=== PATIENT | male | born 1990 | race Caucasian/White ===

== ENCOUNTER 2018-07-11 14:36 | Emergency (ER) | payer MEDICAID ==
--- NOTE | 2018-07-11 15:10 | Emergency Department Record ---
History of Present Illness - General Chief Complaint: Chest Pain Stated Complaint: CHEST PAIN Time Seen by Provider: 07/11/18 15:09 Source: Patient Mode of Arrival: Ambulatory Limitations: No limitations - History of Present Illness Initial Comments: pt has been having intermittent bouts of cp all day. it gradually got worse until pt was grabbing his chest and had difficulty driving down the road. pain has eased now. pt smokes. fam hx unknown. MD Complaint: Chest pain Onset/Timin -: Hour(s) Onset: Awoke with symptoms Pain Location: Substernal Pain Radiation: LUE Severity: Moderate Severity scale (1-10): 4 Quality: Sharp, Other Consistency: Constant Improves With: Nothing Worsens With: Nothing Anginal Symptoms: Dyspnea Treatments Prior to Arrival: None - Related Data Previous Rx's Medication Instructions Recorded Ibuprofen [Motrin 600Mg] 600 mg PO Q6H #20 tablet 07/11/18 Allergies Allergy/AdvReac Type Severity Reaction Status Date / Time No Known Drug Allergies Allergy Verified 07/11/18 14:54 Travel Screening - Travel/Exposure Within Last 30 Days Have you traveled within the last 30 days?: No - Travel/Exposure Within Last Year Have you traveled outside the [place] in the last year?: No - Additonal Travel Details Have you been exposed to anyone with a communicable illness?: No - Travel Symptoms Symptom Screening: None Review of Systems Reviewed: No additional complaints except as noted below Constitutional: Reports: As per HPI. Denies: Chills, Fever, Malaise, Night sweats, Weakness, Weight change Eyes: Reports: As per HPI. Denies: Eye discharge, Eye pain, Photophobia, Vision change ENT: Reports: As per HPI. Denies: Congestion, Dental pain, Ear pain, Epistaxis , Hearing loss, Throat pain Respiratory: Reports: As per HPI. Denies: Cough, Dyspnea, Hemoptysis, Stridor, Wheezes Cardiovascular: Reports: As per HPI, Chest pain. Denies: Arrhythmia, Dyspnea on exertion, Edema, Murmurs, Orthopnea, Palpitations, Paroxysmal nocturnal dyspnea, Rheumatic Fever, Syncope Endocrine: Reports: As per HPI. Denies: Fatigue, Heat or cold intolerance, Polydipsia, Polyuria Gastrointestinal: Reports: As per HPI. Denies: Abdominal pain, Constipation, Diarrhea, Hematemesis, Hematochezia, Melena, Nausea, Vomiting Genitourinary: Reports: As per HPI. Denies: Dysuria, Frequency, Hematuria, Incontinence, Retention, Testicular pain, Testicular mass, Urgency Musculoskeletal: Reports: As per HPI. Denies: Arthralgia, Back pain, Gout, Joint swelling, Myalgia, Neck pain Skin: Reports: As per HPI. Denies: Bruising, Change in color, Change in hair/ nails, Lesions, Pruritus, Rash Neurological: Reports: As per HPI. Denies: Abnormal gait, Confusion, Headache, Numbness, Paresthesias, Seizure, Tingling, Tremors, Vertigo, Weakness Psychiatric: Reports: As per HPI. Denies: Anxiety, Auditory hallucinations, Depression, Homicidal thoughts, Suicidal thoughts, Visual hallucinations Hematological/Lymphatic: Reports: As per HPI. Denies: Anemia, Blood Clots, Easy bleeding, Easy bruising, Swollen glands Past Medical History - SOCIAL HISTORY Smoking Status: Current every day smoker Alcohol Use: Rare Drug Use: Heavy Drug Use Detail:: Marijuana - RESPIRATORY Hx Respiratory Disorders: No - CARDIOVASCULAR Hx Cardio Disorders: No - NEURO Hx Neuro Disorders: No - GI Hx GI Disorders: No - Hx Genitourinary Disorders: No - ENDOCRINE Hx Endocrine Disorders: No - MUSCULOSKELETAL Hx Musculoskeletal Disorders: No - PSYCH Hx Psych Problems: No - HEMATOLOGY/ONCOLOGY Hx Hematology/Oncology Disorders: No Family Medical History Any Significant Family History?: No Family Hx Comment (NOT TO BE USED IN PLACE OF ITEMS BELOW): Adopted Physical Exam - General General Appearance: Alert, Oriented x3, Cooperative, Mild distress - Head Head exam: Normal inspection - Eye Eye exam: Normal appearance, PERRL, EOMI Pupils: Normal accommodation - ENT ENT exam: Normal exam, Mucous membranes moist, Normal external ear exam, Normal orophraynx Ear exam: Normal external inspection. negative: External canal tenderness Nasal Exam: Normal inspection. negative: Discharge, Sinus tenderness Mouth exam: Normal external inspection, Tongue normal Teeth exam: Normal inspection. negative: Dental caries Throat exam: Normal inspection. negative: Tonsillar erythema, Tonsillar exudate - Neck Neck exam: Normal inspection, Full ROM. negative: Tenderness - Respiratory Respiratory exam: Normal lung sounds bilaterally. negative: Respiratory distress - Cardiovascular Cardiovascular Exam: Regular rate, Normal rhythm, Normal heart sounds - GI/Abdominal GI/Abdominal exam: Soft, Normal bowel sounds. negative: Tenderness - Rectal Rectal exam: Deferred - exam: Deferred - Extremities Extremities exam: Normal inspection, Full ROM, Normal capillary refill. negative: Tenderness - Back Back exam: Reports: Normal inspection, Full ROM. Denies: Muscle spasm, Rash noted, Tenderness - Neurological Neurological exam: Alert, CN II-XII intact, Normal gait, Oriented X3 - Psychiatric Psychiatric exam: Normal affect, Normal mood - Skin Skin exam: Dry, Intact, Normal color, Warm Course Vital Signs 07/11/18 14:55 Temperature 98 F Pulse Rate 68 Respiratory 18 Rate Blood Pressure 128/78 Pulse Ox 98 Medical Decision Making - Lab Data Result diagrams: 07/11/18 15:52 07/11/18 15:52 Disposition Disposition: Discharge Clinical Impression: Chest pain Qualifiers: Chest pain type: intercostal pain Qualified Code(s): R07.82 - Intercostal pain Disposition: Home, Self-Care Condition: (1) Good Instructions: Chest Wall Pain (ED) Additional Instructions: follow up with family doctor. return sooner if worse. Prescriptions: Ibuprofen [Motrin 600Mg] 600 mg PO Q6H #20 tablet Forms: Patient Portal Access Quality - Quality Measures Quality Measures: N/A - Blood Pressure Screening Does Patient Have Any of the Following: No Blood Pressure Classification: Pre-Hypertensive BP Reading Systolic Measurement: 128 Diastolic Measurement: 78 Screening for High Blood Pressure: < Pre-Hypertensive BP, F/U Documented > [ [id number]] Pre-Hypertensive Follow-up Interventions: Follow-up with rescreen every year.
[2018-07-11] MEDS ORDERED: ASPIRIN 81 MG CHEWABLE TABLET PO ONE (15:34)
[2018-07-11 16:04] LABS: ABSOLUTE NEUTROPHIL COUNT 5.03; BASO % 0.3 % (0-6); EOS % 0.5 % (0-6); GRAN % 67.8 % (47-80); HEMATOCRIT 45.3 % (42.0-52.0); HEMOGLOBIN 14.8 gm/dl (14.0-18.0); LYMPH % 24.5 % (16-45); MEAN CORPUSCULAR HEMOGLOBIN 27.8 pg (27-33); MEAN CORPUSCULAR HGB CONC 32.7 g/dl (32-36); MEAN PLATELET VOLUME 10.1 fl (7.4-10.4); MONO % 6.9 % (0-9); PLATELET COUNT 254 K/uL (130-400); RED BLOOD COUNT 5.33 M/uL (4.40-5.70); WHITE BLOOD COUNT W/O DIFF 7.4 K/uL (4.2-12.2)
[2018-07-11] MEDS ORDERED: KETOROLAC 30 MG/ML VIAL IVP ONE (16:05)
[2018-07-11 16:18] LABS: BLOOD UREA NITROGEN 12 mg/dL (6-20); CREATININE 0.7 mg/dL (0.7-1.2); EST GLOMERULAR FILTRATION RATE > 60 mL/min
[2018-07-11 16:21] LABS: GLUCOSE,RANDOM 92 mg/dL (74-109)
[2018-07-11 16:24] LABS: CREATINE PHOSPHOKINASE 157 U/L (39-308)
[2018-07-11 16:26] LABS: CKMB 1.6 ng/mL (<6.73)
--- NOTE | 2018-07-13 15:39 | RADIOLOGY REPORT ---
EXAMINATION: Two-view chest on 07/11/2018 at 5 p.m. CLINICAL HISTORY: Left-sided chest discomfort with occasional shortness of breath and fatigue for 1 month. TECHNIQUE: PA and lateral views. COMPARISON: None. FINDINGS: Heart size at about the upper limits of normal. There is some elevation of right hemidiaphragm anteriorly. On the PA view, there is a suggestion of a rounded opacity overlying the right infrahilar region measuring about 4 cm in diameter. However, no definite corresponding 4 cm mass seen on the lateral view, and this may be some form of superimposition of structures or overlying artifact. Followup bilateral oblique views as well as lordotic view may be useful to confirm the absence of a 4 cm focal opacity in the right infrahilar region. Left lung appears clear. No pleural effusion or pneumothorax evident. IMPRESSION: 1. Mild elevation of the right hemidiaphragm anteriorly. 2. Suggestion of a 4 cm somewhat rounded opacity in the right infrahilar region on the frontal view not identified on the lateral view. It may just be related to overlapping structures as noted above. Repeat PA as well as lordotic and bilateral oblique views suggested ensuring there is no overlying artifact at the time of the repeat views. MTDD
--- NOTE | 2018-07-13 15:39 | RADIOLOGY REPORT ---
EXAMINATION: Oblique and lordotic views of the chest on 07/11/2018 at 6:12 p.m. CLINICAL HISTORY: Suggestion of a 4 cm right infrahilar opacity on the routine PA chest from earlier today. Additional views requested for further evaluation. TECHNIQUE: Lordotic and bilateral oblique views. COMPARISON: PA and lateral from earlier today. FINDINGS: No discrete right infrahilar abnormality identified in the additional views obtained. The appearance on the PA view earlier was apparently just either due to overlapping structures or some form of transient artifact overlying the right infrahilar region on the prior study. IMPRESSION: No right infrahilar abnormality identified on the additional views, and the appearance on the earlier exam was apparently due to overlapping structures or some form of transient overlapping artifact. MTDD
== END 2018-07-11 19:20 | disposition home or self-care (01) ==
LOC: ER 14:36
DX: R07.82 Intercostal pain (principal); R06.00 Dyspnea, unspecified; F17.210 Nicotine dependence, cigarettes, uncomplicated
CPT/HCPCS: 71046; 80048; 82550; 82553; 84484; 85025; 85379; 93005; 93010; 99284; J1885